=== PATIENT | female | born 1945 | race Caucasian/White ===

== ENCOUNTER 2019-03-12 06:44 | Inpatient (IN) | payer OTHER, MEDICAID ==
[~2019-03-12] VITALS: Ht 160 cm; Wt 88.9 kg
[~2019-03-12 06:44] MED LIST: ALD25 PO; AMLODIPINE BESYL5 M1 PO; BACO TOP; CHLORTHALIDONE25 MG PO; COUMADIN2 MG; CYMBALTA60 M1 PO; DIGOXIN0.125 M1 PO; HIBICLENS118 ML TOP; HUMALOG; LANTUS100 U/ML; LIPI20 PO; METFORMIN ER500 M1 PO; TOP50 PO; TRAMADOL HCL50 MG PO; XARELTO20 M1 PO; ZES10 PO
--- NOTE | 2019-03-12 06:53 | NUR ---
PT BIBA FOR LEFT HIP PAIN. PER BOOK SEWING MACHINE OPERATOR PT SLIPPED IN THE SHOWER TODAY. PT DENIES ALOC. FOUND PT ON FLOOR. PT WAS UNABLE TO STAND. NO S/S OF DISTRESS. RESP E/U. DR. OSBORN AT BEDSIDE FOR MSE. PULSES PRESENT BILATERALLY. COLOR AND TEMP WNL. WILL CONTINUE TO MONITOR.
[2019-03-12 07:51] LABS: BASOPHIL % 0.4 % (0-2); PLATELET COUNT 271 x10^3mcL (130-400)
[2019-03-12 07:53] LABS: CALCIUM 9.3 mg/dL (8.5-10.1); CARBON DIOXIDE 28.9 mmol/L (21-32); CHLORIDE SERUM 101 mmol/L (98-107); CREATININE SERUM 1.1 mg/dL (0.6-1.0); GLUCOSE SERUM 366 mg/dL (74-106); POTASSIUM SERUM 5.3 mmol/L (3.5-5.1); SODIUM SERUM 137 mmol/L (136-145)
[2019-03-12 07:58] LABS: ALKALINE PHOSPHATASE 119 U/L (46-116); ALT/SGPT 24 U/L (14-59); AST/SGOT 18 U/L (15-37); BILIRUBIN TOTAL 0.7 mg/dL (0.20-1.00); HDL CHOLESTEROL 37 mg/dL (40-60); LIPASE 105 IU/L (73-393); TOTAL PROTEIN, SERUM 6.9 g/dL (6.4-8.2); TRIGLYCERIDES 125 mg/dL (<150)
[2019-03-12 08:01] LABS: RED CELL DISTRIBUTION WIDTH 15.8 % (11.5-14.5)
[2019-03-12 08:03] LABS: CHOLESTEROL 123 mg/dL (<200); CHOLESTEROL/HDL RATIO 3.3
[2019-03-12 08:08] LABS: FREE T4 1.11 ng/dL (0.76-1.46); FREE THYROXINE INDEX 2.8 ug/dL (1.4-4.5); T4(THYROXINE) 8.2 ug/dL (4.7-13.3)
[2019-03-12 08:14] LABS: T3 TOTAL 1.37 ng/mL
--- NOTE | 2019-03-12 08:52 | NUR ---
JIMMY; PT CONTRACTS SPECIALIST FROM [facility] CALLED FOR A CLINICAL UPDATE ON PATIENT; ALL QUESTIONS ADDRESSED AT THIS TIME; SHE HAD NO FURTHER QUESTIONS.
--- NOTE | 2019-03-12 11:00 | NUR ---
PT RECEIVED FROM ED AWAKE, ALERT AND ORIENTED. IN NO RESP. DISTRESS. PT CAME IN S/P FALL IN SHOWER WITH LT HIP PAIN. LEG SHORTENING NOTED. PT WAS MEDICATED IN ER FOR PAIN WITH FAIR RELIEF. NO C/O PAIN AT THIS TIME. VS STABLE. IVF INFUSING TO RT AC AND SITE/CATH INTACT.PT ORIENTED TO ROOM, CALL LIGHT WITHIN REACH. FAMILY AT BEDSIDE. WILL CONTINUE WITH PLAN OF CARE.
[2019-03-12 11:12] VITALS: BP 132/90
--- NOTE | 2019-03-12 12:44 | NUR ---
C/O PAIN TO LT HIP 05/22, MEDICATED WITH MORPHINE IVP PER ORDER.
--- NOTE | 2019-03-12 14:07 | NUR ---
RESTING AT THIS TIME. NO S/S OF PAIN OR DISCOMFORT. CALL LIGHT WITHIN REACH,.
--- NOTE | 2019-03-12 16:04 | NUR ---
JEWELL CATH INSERTED PER ORDER. IN PLACE AND DRAINING WELL. PT C/O LT HIP AFTER MOVEMENTS, NORCO GIVEN.
[2019-03-12 16:20] VITALS: BP 130/77
--- NOTE | 2019-03-12 16:50 | NUR ---
RESTING AT THIS TIME. REPORTED FAIR PAIN RELIEF.
[2019-03-12 17:26] LABS: microscopic required? YES; urine erythrocyte NEGATIVE (NEGATIVE)
--- NOTE | 2019-03-12 18:42 | NUR ---
REMAINS IN NO DISTRESS, AWAKE AND ALERT. NO CHANGES IN VS. IVF INFUSING WELL AND SITE CLEAR. CALL LIGHT WITHIN REACH. WILL BE ENDORSED TO INCOMING SHIFT.
--- NOTE | 2019-03-12 19:30 | NUR ---
RECIEVED PT IN NO ACUTE DISTRESS. TELE #21, A FIB, HR 115. BREATHING E/U. RADIAL AND PEDAL PULSES PALPABLE. JEWELL PRESENT. C/O L HIP PAIN, WILL MEDICATE PER EMAR. IV TO LAC, PATENT. BED IN LOWEST POSITION, 2 SIDE RAILS UP, CALL LIGHT IN REACH. INSTRUCTED TO CALL FOR ASSISTANCE.
[2019-03-12 20:11] VITALS: BP 136/76
--- NOTE | 2019-03-13 00:11 | NUR ---
ENDORSED CARE TO JANET MCLEOD.
--- NOTE | 2019-03-13 00:45 | NUR ---
PATIENT RECEIVED FROM LUIS MCLEOD FOR CONTINUATION CARE. RESPIRATION EVEN AND UNLABORED, ON ROOM AIR. COMPLAINED OF LEFT HIP PAIN, PS 10/10. WILL MEDICATE ORDERED. FACIAL GRIMACE NOTED. IV SITE TO RIGHT ANTECUBITAL AREA INTACT. WILL CONTINUE TO MONITOR.
--- NOTE | 2019-03-13 01:17 | NUR ---
PATIENT COMPLAINED OF LEFT HIP PAIN, PS 10/10. MEDICATED WITH MORPHINE SULFATE 2 MG IVP ORDERED. WILL CONTINUE TO MONITOR.
[2019-03-13 05:33] VITALS: BP 133/76
--- NOTE | 2019-03-13 06:22 | NUR ---
PATIENT RESTING IN BED. RESPIRATION EVEN AND UNLABORED, ON ROOM AIR. COMPLAINED OF LEFT HIP PAIN, PS 10/10. MEDICATED WITH MORPHINE SULFATE 2 MG IVP ORDERED. JEWELL CATHETER TO GRAVITY. ON NPO FOR POSSIBLE SURGERY. ASSISTED WITH NEEDS. SAFETY OBSERVED. PLACED BED IN THE LOWEST POSITION. PLACED CALL LIGHT WITHIN REACH AT ALL TIMES.
[2019-03-13 06:49] LABS: BASOPHIL % 0.3 % (0-2); PLATELET COUNT 254 x10^3mcL (130-400)
[2019-03-13 06:55] LABS: CALCIUM 9.5 mg/dL (8.5-10.1); CARBON DIOXIDE 28.4 mmol/L (21-32); CHLORIDE SERUM 103 mmol/L (98-107); GLUCOSE SERUM 284 mg/dL (74-106); POTASSIUM SERUM 4.8 mmol/L (3.5-5.1); SODIUM SERUM 139 mmol/L (136-145)
[2019-03-13 07:12] LABS: RED CELL DISTRIBUTION WIDTH 16.5 % (11.5-14.5)
[2019-03-13 08:50] VITALS: BP 164/90
[2019-03-13 13:09] VITALS: BP 131/80
--- NOTE | 2019-03-13 13:25 | NUR ---
INTERROGATED DEFIBRILLATOR THROUGH [employer] DEVICE. REPORT RECEIVED VIA FAX. DR. COSTELLO AND NP. SKAGGS MADE AWARE.
--- NOTE | 2019-03-13 14:38 | NUR ---
PHYSICAL THERAPY NOTE PHYSICAL THERAPY EVAL ON HOLD. PATIENT IS AWAITING ORTHO PROCEDURE FOR L HIP FRACTURE
[2019-03-13 15:03] VITALS: Ht 160 cm; Wt 88.9 kg
[2019-03-13 16:30] VITALS: BP 131/81
--- NOTE | 2019-03-13 19:26 | NUR ---
REPORT GIVEN TO THE CUSTOMER CARE SPECIALIST NURSE, PT AWAKE AND ALERT FOR REPORT. TOLERATED TREATMENT WELL DURING THE SHIFT CARE ENDORSED
--- NOTE | 2019-03-13 19:30 | NUR ---
RECIEVED PT IN NO ACUTE DISTRESS. TELE #21, A FIB, HR 90'S. BREATHING E/U. JEWELL PRESENT. L PEDAL PULSE PALPABLE. CMS INTACT. STATES L HIP PAIN CURRENTLY 0/10. IV TO LAC, PATENT. NPO AFTER 0000 FOR POSSIBLE PROCEDURE TOMORROW. CONTACT PRECAUTIONS IN PLACE. BED IN LOWEST POSITION, 2 SIDE RAILS UP, CALL LIGHT IN REACH. INSTRUCTED TO CALL FOR ASSISTANCE.
[2019-03-13 20:57] VITALS: BP 126/74
--- NOTE | 2019-03-14 00:35 | NUR ---
RESTING IN BED WITH EYES CLOSED. BREATHING E/U. NO ACUTE DISTRESS NOTED. WILL CONTINUE TO MONITOR.
[2019-03-14 05:47] VITALS: BP 133/71
[2019-03-14 06:15] LABS: BASOPHIL % 0.3 % (0-2); PLATELET COUNT 243 x10^3mcL (130-400)
--- NOTE | 2019-03-14 06:35 | NUR ---
CONSENT FOR SURGERY AND ANESTHESIA OBTAINED AND CHECKLIST IN CHART. JEWELL CARE COMPLETE. PRE-OP CHLORHEXADINE BATH COMPLETE. NPO SINCE MIDNIGHT. NO ACUTE DISTRESS NOTED. WILL ENDORSE TO ONCOMING RN.
[2019-03-14 06:53] LABS: CALCIUM 8.4 mg/dL (8.5-10.1); CARBON DIOXIDE 30.5 mmol/L (21-32); CHLORIDE SERUM 102 mmol/L (98-107); CREATININE SERUM 0.9 mg/dL (0.6-1.0); GLUCOSE SERUM 263 mg/dL (74-106); POTASSIUM SERUM 4.6 mmol/L (3.5-5.1); SODIUM SERUM 139 mmol/L (136-145)
[2019-03-14 06:59] LABS: RED CELL DISTRIBUTION WIDTH 16.1 % (11.5-14.5)
--- NOTE | 2019-03-14 07:32 | NUR ---
RECEIVED PATIENT FROM NIGHT NURSE. AWAKE. ALERT AND ORIENTED. NO C/O PAIN AT THIS TIME. NPO FOR SURGERY THIS MORNING. IV INFUSING NS AT 50 ML/HR. JEWELL CATHETER DRAINING CARLOS URINE.
[2019-03-14 08:43] VITALS: BP 140/75
--- NOTE | 2019-03-14 08:56 | NUR ---
PATIENT C/O MODERATELY SEVERE PAIN IN L HIP/LEG. MEDICATED WITH MORPNINE PER EMAR. GIVEN BETABLOCKER BUT ALL OTHER SCHEDULED MEDS HELD.
--- NOTE | 2019-03-14 09:11 | NUR ---
PATIENT TAKEN TO SURGERY.
--- NOTE | 2019-03-14 13:39 | NUR ---
AT 1202 - PAITENT BACK IN ROOM FOLLOWING L HIP ORIF WITH TRACNAL UNDER GENERAL AND LOCAL ANAESTHESIA. PATIENT IS AWAKE, ALERT AND ORIENTED X 4. DRESSING TO L HIP IS DRY AND INTACT. IV NOW IN LAC - IV INFUSION OF NS RESUMED AT 50 ML/HR. REPROTS MINIMAL PAIN. CALL LIGHT WITHIN REACH.
[2019-03-14 14:00] VITALS: BP 124/72
--- NOTE | 2019-03-14 14:33 | NUR ---
PHYSICAL THERAPY NOTE PHYSICAL THERAPY EVALUATION SERVICE DATE SCHEDULED FOR 03/15/[address] BRODY.
--- NOTE | 2019-03-14 15:22 | NUR ---
AT 1415 - REPOSITIONED FOR CONMFORT. C/O L HIP/LEG PAIN. IV ANCEF NOW IN PROGRESS. SCDS TO BLE IN PLACE. AT 1439 - MEDICATED WITH MORPHINE PER EMAR. AT 1515 - APPEARS MORE COMFORTABLE. RESTING QITH EYES CLOSED; RESPIRATIONS REGULAR. CONTINUING TO MONITOR.
--- NOTE | 2019-03-14 16:25 | NUR ---
STATUS CHANGED TO MED-SURG. PATIENT TAKEN OFF CARDIAC MONITORING. AT BEDSIDE.
[2019-03-14 17:34] VITALS: BP 128/75
--- NOTE | 2019-03-14 18:05 | NUR ---
SAT UP IN BED FOR DINNER. WAS ABLE TO EAT SMALL AMOUNT. NOW RESTING QUIETLY. VSS. AFEBRILE. IV INFUSING NS AT 50 ML/HR. DRESSING TO LEFT HIP DRY AND INTACT. PAIN UNDER CONTROL WITH IV MORPHINE. JEWELL CATHETER DRAINING CARLOS URINE. GOOD OUTPUT. CONTACT ISOLATION FOR MRSA NARES, MAINTAINED. WILL ENDORSE CARE TO NIGHT NURSE.
--- NOTE | 2019-03-14 19:04 | NUR ---
PATIENT ATTEMPTED TO GET OUT OF BED WITHOUT CALLING FOR NURSE. APPEARES SLIGHTLY DISORIENTED. PATIENT REORIENTED. INSTRUCTED TO CALL FOR NURSE AND NOT TO ATTEMPT GETTING OUT OF BED - PT WILL ASSIST PATIENT IN AM. REPOSITIONED. MEDICATED WITH IV MORPHINE PER EMAR FOR PAIN. BED EXIT ALARM ACTIVE.
--- NOTE | 2019-03-14 20:14 | NUR ---
RECIEVED PT FROM DAY NURSE. PT RESTING IN BED COMFORTABLY. PT A/OX3, FORGETFUL OF WHAT HOSPITAL SHE IS CURRENTLY IN. PT DENIES PAIN AT THIS TIME. M/S, DENIES CP, N/V, DIZZINESS, OR PALPATION. PALPABLE PUSLES, NO EDEMA NOTED. BREATHING EVEN AND UNLABORED ON RA. DENIES SOB. IS AT BEDSIDE, PT DEMONSTRATED UNDERSTANDING. ABD SOFT AND ROUND, PT PASSING GAS AND BURPING. L HIP SURGICAL INSCISION DRESSING CDI. LAC CDI AND INFUSING. BED AT LOWEST POSITION. CALL LIGHT WITHIN REACH. WILL CONTINUE TO MONITOR.
[2019-03-14 20:20] VITALS: BP 134/93
--- NOTE | 2019-03-14 21:30 | NUR ---
PT REFUSED BACTRIM OINTMENT IN LEXY NARES. STATES "I DONT WANT YOU IN MY NOSE." EDUCATED PT ON NEED AND USE OF BACTRIM. PT CONTINUES TO REFUSE.
--- NOTE | 2019-03-15 00:20 | NUR ---
PT COMPLAINING OF 5/10 LLEG PAIN. MEDICATED PT WITH PRN NORCO. WILL MONITOR.
--- NOTE | 2019-03-15 00:23 | NUR ---
PT RESTING IN BED COMFORTABLY. AT BEDSIDE. BREATHING EVEN AND UNLABORED. NO SIGNS OF DISCOMFORT OR DISTRESS NOTED AT THIS TIME. BED AT LOWEST POSITION. CALL LIGHT WITHIN REACH. WILL CONTINUE TO MONITOR.
--- NOTE | 2019-03-15 04:24 | NUR ---
PT COMPLAINING OF 5/10 L HIP PAIN. MEDICATED PT WITH NORCO PRN. WILL MONITOR.
[2019-03-15 05:12] VITALS: BP 127/78
--- NOTE | 2019-03-15 06:12 | NUR ---
PT RESTING IN BED COMFORTABLY. NO S/S OF PAIN OR DISTRESS AT THIS TIME. PT BREATHING EVEN AND UNLABORED. L HIP SURGICAL DRESSING CDI. IV TO LAC CDI, INFUSING. ANCEF DOSE COMPLETED. BED AT LOWEST POSITION. CALL LIGHT WITHIN REACH. WILL CONTINUE TO MONITOR.
[2019-03-15 06:48] LABS: BASOPHIL % 0.2 % (0-2); PLATELET COUNT 233 x10^3mcL (130-400)
[2019-03-15 06:57] LABS: CARBON DIOXIDE 26.7 mmol/L (21-32); CHLORIDE SERUM 101 mmol/L (98-107); CREATININE SERUM 1.1 mg/dL (0.6-1.0); GLUCOSE SERUM 257 mg/dL (74-106); POTASSIUM SERUM 5.1 mmol/L (3.5-5.1); SODIUM SERUM 135 mmol/L (136-145)
[2019-03-15 07:03] LABS: RED CELL DISTRIBUTION WIDTH 16.7 % (11.5-14.5)
--- NOTE | 2019-03-15 08:00 | NUR ---
AT 0730 - RECEIVED PATIENT FROM NIGHT NURSE. AWAKE, ALERT AND CONFUSED. ORIENTED TO PERSON AND SITUATION, NOT TO PLACE AND TIME. KNOWS THAT SHE HAS HAD HIP SURGERY FOR FRACTURE AFTER A FALL. PATIENT INSTRUCTED NOT TO ATTEMPT GETTING OUT OF BED BUT TO CALL FOR NURSE WITH ANY NEEDS. PHYSICAL THERAPY WILL AMBULATE PATIENT TODAY. SAT UP IN BED FOR BREAKFAST. IV INFUSING NS AT 50ML/HR. JEWELL CATHETER DRAINING CARLOS URINE. DRESSING TO L HIP IS DRY AND INTACT. SCDS TO BLE IN PLACE. BED EXIT ALARM ACTIVE.
[2019-03-15 09:23] VITALS: BP 105/59
--- NOTE | 2019-03-15 15:21 | NUR ---
AT 0845 - PATIENT OUT OF BED, AMBULATED WITH PHYSICAL THERAPY AFTER RECEIVING NORCO FOR PAIN. AT 1000 - SCHEDULED DOSE OF LANTUS 45 UNITS HELD AT THIS TIME DUE TO PATIENT NOT EATING. WAITER/WAITRESS CAPTAIN KATHERINE WAS NOTIFIED. AT 1045 - AT BEDSIDE. PATIENT APPEARS MORE ORIENTED. AT 1207 - BLOOD GLUCOSE LEVEL 257. GIVEN REGULAR INSULIN PER SLIDING SCALE. AT 1440 - MEDICATED WITH NORCO FOR PAIN. PHYSICAL THERAPY SEEING PATIENT AGAIN THIS PM.
[2019-03-15 16:46] VITALS: BP 113/59
--- NOTE | 2019-03-15 18:13 | NUR ---
PATIENT AWAKE, ALERT AND ORIENTED WITH PERIODS OF CONFUSION. ORIENTED TO PERSON AND SITUATION BUT FORGETS THAT SHE IS IN HOSPITAL. REQUIRES FREQUENT RE-ORIENTATION. VSS AND WNL. AFEBRILE. DRESSING REMAINS DRY. PATIENT HAS C/O INTERMITTENT NAUSEA AND RECEIVED ZOFRAN WITH GOOD EFFECT. TAKING ONLY SMALL AMOUNTS OF PO FOOD AND FLUIDS. IV INFUSING NS AT 50 ML/HR. JEWELL CATHETER DRAINING CARLOS URINE. 800 ML OUTPUT THIS SHIFT. PAIN UNDER CONTROL WITH NORCO. PATIENT ABLE TO REPOSITION SELF USING TRAPEZE. AT BEDSIDE. WILL ENDORSE CARE TO NIGHT NURSE.
--- NOTE | 2019-03-15 19:34 | NUR ---
PT RECEIVED FROM THE DAY SHIFT RN. PT IS ALERT AND ORIENTED X3 AT THIS TIME. PT IS CALM AND PLEASANT WITH CARE, TRAPEZE IN PLACE, AIR MATTRESS IN PLACE. SCDS IN PLACE, LEFT HIP BANDAGES IN PLACE AND IS CDI, PT STATES PAIN IN THE LEFT HIP THAT IS ACHING AND DULL AND STATES IT IS A 2/10 PAIN BUT REFUSED PAIN MEDS BECAUSE PAIN IS TOLERABLE. SAFETY AND COMFORT MEASURES MAINTAINED, BED IN LOWEST POSITION, CALL LIGHT WITHIN REACH. WILL CONTINUE TO MONITOR AT THIS TIME.
[2019-03-15 20:15] VITALS: BP 92/56
--- NOTE | 2019-03-16 01:28 | NUR ---
PT IS RESTING IN BED WITH EYES CLOSED AT THIS TIME. PT HAS BEEN ALERT AND ORIENTED X3, CALM AND COOPERATIVE WITH CARE. TRAPEZE IN PLACE AND AIR MATTRESS IN PLACE. PT USES TRAPEZE TO ASSIST WITH REPOSITIONING, NO S/S OF PAIN NOTED. SAFETY AND COMFORT MEASURES MAINTAINED, BED IN LOWEST POSITION, CALL LIGHT WITHIN REACH.
--- NOTE | 2019-03-16 05:29 | NUR ---
PT HAS RESTED IN INTERMITTENT INTERVALS THROUGHOUT THE SHIFT. PT HAS BEEN CALM AND PLEASANT AT THIS TIME. ALERT AND ORIENTED X3 WITH EPISODES OF CONFUSION AT TIMES. PT COMPLAINING OF LEFT HIP PAIN, PT STATES PAIN IS 7/10 AND IS SHARP PAIN AND INCREASES TO 10/10 WITH MOVEMENT. PT MEDICATED WITH PRN NORCO, IV INFUSING AND INTACT AT THIS TIME. DRESSINGS ARE CDI ON THE LEFT HIP, SAFETY AND COMFORT MEASURES MAINTAINED, BED IN LOWEST POSITION, CALL LIGHT WITHIN REACH. PT IS ON AIR MATRESS AND USES TRAPEZE TO ASSIST WITH TURNINIG AND REPOSITIONING. WILL ENDORSE CONTINUITY OF CARE TO THE ONCOMING RN.
[2019-03-16 05:40] LABS: BASOPHIL % 0.1 % (0-2); PLATELET COUNT 245 x10^3mcL (130-400)
[2019-03-16 05:41] LABS: CALCIUM 8.6 mg/dL (8.5-10.1); CARBON DIOXIDE 26.9 mmol/L (21-32); CHLORIDE SERUM 103 mmol/L (98-107); CREATININE SERUM 0.9 mg/dL (0.6-1.0); GLUCOSE SERUM 231 mg/dL (74-106); POTASSIUM SERUM 5.1 mmol/L (3.5-5.1); SODIUM SERUM 138 mmol/L (136-145)
[2019-03-16 05:42] LABS: RED CELL DISTRIBUTION WIDTH 16.9 % (11.5-14.5)
[2019-03-16 05:44] VITALS: BP 116/68
--- NOTE | 2019-03-16 07:50 | NUR ---
PATIENT A/OX3, ABLE TO MAKE NEEDS KNOWN AND FOLLOW COMMANDS. DENIES HEADACHE/CP. LUNGS CTA, NO RESP DISTRESS NOTED ON RA, BREATHING E/U, REACHING ABOUT 1500 ON INCENTIVE SPIROMETER, REINFORCED TO CONT USING THROUGHOUT DAY. PERIPHERAL PULSES PALAPBLE, NO EDEMA. DRESSINGS TO LT HIP SURGICAL SITE CDI, S/P ORIF 03/14/19. NO C/O PAIN AT REST BUT HAS PAIN UPON MOVMENET. TRAPEZE IN PLACE AND PATIENT UTILIZING. LOWER EXTREMETIES ELEVATED ON PILLOW. BOWEL SOUNDS ACTIVE, C/O CONSTIPATION, WILL INFORM PRACTITIONER. JEWELL IN PLACE DRAINING CARLOS URINE TO GRAVITY. IV ACCESS TO LAC SITE WNL, NO REDNESS/SWELLING. CALL LIGHT WITHIN REACH.
[2019-03-16 07:53] VITALS: BP 109/75
--- NOTE | 2019-03-16 09:08 | NUR ---
DUE MEDICATION GIVEN, NO DIFFICULT SWALLOWING OBSERVED. ROCK ROOM WORKER ERROL AT BEDSIDE, INFORMED PATIENT OF POSSIBLY TRANSFERRING PATIENT TO SNF FOR REHAB UPON DISCHARGE, PATIENT VERBALIZED UNDERSTANDING AND REQUESTING TO GO TO [facility]. ALSO INFORMED ROCK ROOM WORKER OF CONSTIPATION, PER ERROL SHE WILL MAKE AN ORDER.
--- NOTE | 2019-03-16 11:14 | NUR ---
CITRATE OF MAG GIVEN TO PATIENT FOR C/O CONSTIPATION. PATIENT BECAME NAUSEAS AFTER AND VOMITED X1, ZOFRAN GIVEN. DULCOLAX PO GIVEN FOR CONSTIPATION. PATIENT REPOSITIONED TO COMFORT. WILL CONT TO MONITOR.
--- NOTE | 2019-03-16 14:15 | NUR ---
PATIENT REPOSITIONED TO COMFORT, SITTING UP FOR LUNCH MEAL AND FOOD TRAY SET UP ASSISTANCE PROVIDED. ENCOURAGED PATIENT TO EAT, PATIENT STATES "IM PROBABLY NOT GOING TO EAT MUCH BUT I'LL TRY". PER MASSAGE THERAPY INSTRUCTOR PATIENT HAS MOMENTS OF CONFUSION. REORIENTING NEEDED.
--- NOTE | 2019-03-16 15:01 | NUR ---
VISITORS AT BEDSIDE. NO SIGN OF ACUTE DISTRESS AT THIS TIME.
--- NOTE | 2019-03-16 15:17 | NUR ---
PATIENT C/O SEVERE LEFT HIP PAIN AFTER BEING REPOSITIONED. NORCO GIVEN, WILL MONITOR.
--- NOTE | 2019-03-16 16:15 | NUR ---
PATIENT STATES NORCO EFFECTIVE FOR PAIN, NO C/O PAIN AT THIS TIME. WILL CONT TO MONITOR.
[2019-03-16 16:48] VITALS: BP 101/42
--- NOTE | 2019-03-16 18:15 | NUR ---
PATIENT ONLY ATE FRUIT SIDE FROM DINNER TRAY, STATES DOES NOT HAVE APPETITE. REPORTS PASSING GAS, NO BM YET, DENIES ABD DISCOMFORT AT THIS TIME. DENIES PAIN TO LT HIP AT REST AT THIS TIME. DRESSINGS TO LEFT HIP CDI. UTILIZING INCENTIVE SPIROMETER ADEQUATELY. NO RESP DISTRESS ON RA. IV SITE WNL. WILL CONT TO MONITOR AND ENDORSE TO NOC NURSE.
--- NOTE | 2019-03-16 19:30 | NUR ---
RECIEVED PT FROM DAY NURSE. PT RESTING COMFORTABLY ON BED. DENIES PAIN AT THIS TIME. PT AOX4, REORIENTED TO PLACE. BREATHING E/U ON RA. DENIES SOB. MED/SURG PT, DENIES CP, N/V, DIZZINESS, AND PALPATATIONS. PALPABLE PULSES, NO EDEMA NOTED. SCDS IN PLACE. ABD SOFT/ROUND. DENIES PAIN TO PALPATION. GENERALIZED WEAKNESS, UP WITH ASSIST. LEFT HIP SURGICAL INCISION COVERED WITH DRESSING, CDI. LAC INTACT AND INFUSING.
[2019-03-16 20:34] VITALS: BP 103/64
[2019-03-17 06:01] VITALS: BP 111/68
[2019-03-17 06:30] LABS: CALCIUM 8.1 mg/dL (8.5-10.1); CARBON DIOXIDE 29.5 mmol/L (21-32); CHLORIDE SERUM 103 mmol/L (98-107); CREATININE SERUM 0.8 mg/dL (0.6-1.0); GLUCOSE SERUM 186 mg/dL (74-106); SODIUM SERUM 137 mmol/L (136-145)
[2019-03-17 06:31] LABS: BASOPHIL % 0.4 % (0-2); PLATELET COUNT 240 x10^3mcL (130-400)
[2019-03-17 06:35] LABS: RED CELL DISTRIBUTION WIDTH 16.5 % (11.5-14.5)
--- NOTE | 2019-03-17 06:36 | NUR ---
PT RESTING IN BED COMFORTABLY. NO S/S OF PAIN OR DISTRESS AT THIS TIME. BREATHING E/U. NO SIGNS OF ACUTE DISTRESS AT THIS TIME. BED AT LOWEST POSITION. CALL LIGHT WITHIN REACH. WILL CONTINUE TO MONITOR.
[2019-03-17 06:46] LABS: POTASSIUM SERUM 5.6 mmol/L (3.5-5.1)
--- NOTE | 2019-03-17 07:30 | NUR ---
PT C/O PAIN TO LT HIP AREA MEDICATED WITH NORCO PO PER EMAR.
[2019-03-17 09:01] VITALS: BP 105/80
[2019-03-17] MEDS ORDERED: NORCO1 TA2 PO (09:28)
--- NOTE | 2019-03-17 11:00 | NUR ---
NOTED ORDER TO D/C JEWELL CATH. JEWELL CLAMPED AND INITIATED BLADDER TRAINING WITH PLAN FOR F/C D/C'D LATER TODAY.
[2019-03-17 13:06] VITALS: BP 112/65
--- NOTE | 2019-03-17 15:00 | NUR ---
PT C/O PAIN TO LLE 02/19, MEDICATED WITH TORADOL IVP PER EMAR. RELEASED JEWELL AT THIS TIME. FOR 10 MIN AND RECLAMPED
[2019-03-17 16:15] VITALS: BP 101/65
--- NOTE | 2019-03-17 16:50 | NUR ---
PT C/O PAIN NOT RELIEVED BY TORADOL. PO NORCO GIVEN AT THIS TIME PER EMAR.
--- NOTE | 2019-03-17 18:30 | NUR ---
PT RESTING COMFORTABLY AT THIS TIME. DENIES ANY DISCOMFORT. CALL LIGHT IN REACH NEEDS ATTENDED.
--- NOTE | 2019-03-17 19:40 | NUR ---
RECEIVED REPORT FROM AM NURSE. PT IN BED WITH FAMILY AT BEDSIDE. PT AAOX4, FOLLOWES COMMANDS. ABLE TO MAKE NEEDS KNOWN. MED-SURG. DENIES CP/PRESSURE AT THIS TIME. PALPABLE PULSES TO BLE AND BUE. NO EDEMA NOTED. LUNG SOUNDS CTA ON RA. BREATHING EVEN AND UNLABORED. NO ACUTE DISTRESS NOTED. ABD SOFT AND A LITTLE DISTENDED. ACTIVE BOWEL SOUNDS X4 QUAD. LAST BM 03/12/19. DENIES N/V/D. JEWELL CATH IN PLACE DRAINING CLEAR YELLOW URINE. GENRALIZED WEAKNESS. BEDFAST AT THIS TIME. DRESSING TO LEFT HIP CDI. DRESSING TO LEFT FOOT CDI. IV TO LAF PATENT AND INTACT. SITE FREE FROM REDNESS AND SWELLING. BED AT LOWEST SETTING. SIDE RAILS X2 UP. CALL LIGHT WITHING REACH. WILL CONTINUE TO MONITOR.
[2019-03-17 21:00] VITALS: BP 93/48
--- NOTE | 2019-03-17 21:30 | NUR ---
PAGE DR SOTO TO REQUEST ENEMA FOR PT. AWAITING TO CALL BACK.
--- NOTE | 2019-03-18 00:36 | NUR ---
PT C/O 02/19 PAIN AT HER INCISION. MEDICATED WITH PRN TORADOL PER OCT. PT REASSESSED AND STATES RELIEF OF PAIN. WILL CONTINUE TO MONITOR.
[2019-03-18 05:40] VITALS: BP 116/79
--- NOTE | 2019-03-18 06:36 | NUR ---
PT SLEPT AT INTERVALS THROGHOUT THE NIGHT. BREATHING EVEN AND UNLABORED. NO ACUTE DISTRESS NOTED. PT REQUESTED TO KEEP JEWELL DURING THE NIGHT AND DC MORNING. STATES SHE IS INCONTINENT AND DOESNT WANT TO GET WET. JEWELL CATH DC AT [address] PARSONS CALL BACK TO PUT ENEMA ORDER IN. IV TO LFA RUNNING NS AT 50ML/HR. SITE FREE FROM REDNESS AND SWELLING. BED AT LOWEST SETTING. C/O OF 9/10 PAIN AT HER HIP. MEDICATED WITH PRN NORCO PER OCT. SIDE RAILS X2 UP. CALL LIGHT WITHING REACH. WILL ENDORSE CARE TO AM NURSE. WILL ENDORSE CARE TO AM NURSE.
--- NOTE | 2019-03-18 07:50 | NUR ---
RECEIVED PT IN BED A/A/OX3 FORGETFUL AND DISORIENTED AT TIMES. RESP EVEN AND UNLABORED WITH CLEAR BS BILAT. DENIES ANY SOB/CP/PRESSURE. NO EDEMA NOTED WITH IVF TO LFA. ABD SOFT, OBESE, NONTENDER WITH +BS X4. MUSIC INSTRUCTOR BM IN 5DAYS RECEIVED LAXITIVES LAST 2 DAYS. WILL REQUEST ENEMA FROM THIS AM. PT DENIES URGE TO HAVE BM AT THIS TIME. F/C D/C EARLIER IN AM NOTICE SMALL AMOUNT OF URINE ON JULIAN. [PT INSTRUCTED TO CALL WHEN A BEDPAN WAS NEEDED. PT ABLE TO REPOSITION SELF IN BED WITH SOME ASSISTANCE, GET OOB WITH WALKER AND PT TO BEDSIDE CHAIR. DENIES ANY PAIN AT THIS TIME. CALL LIGHT IN REACH NEEDS ATTENDED TO.
[2019-03-18 08:17] VITALS: BP 103/76
--- NOTE | 2019-03-18 08:20 | NUR ---
SPOKE WITH MACEY FRANKLIN MADE AWARE PT HAS HAD NO BM RECORDER SINCE ADMISSION PT RECEIVED SEVERAL LAXITIVES ON SUNDAY AND YESTERDAY WITH NO EFFECT, REQUESTED ENEMA. MADE AWARE SHE WILL ORDER ENEMA FOR PT TODAY.
[2019-03-18 08:49] LABS: BASOPHIL % 0.5 % (0-2); PLATELET COUNT 298 x10^3mcL (130-400)
[2019-03-18 09:00] LABS: CALCIUM 8.5 mg/dL (8.5-10.1); CARBON DIOXIDE 26.7 mmol/L (21-32); CHLORIDE SERUM 101 mmol/L (98-107); GLUCOSE SERUM 245 mg/dL (74-106); POTASSIUM SERUM 4.3 mmol/L (3.5-5.1); SODIUM SERUM 135 mmol/L (136-145)
--- NOTE | 2019-03-18 11:00 | NUR ---
SPOKE WITH PAEDIATRIC THORACIC PHYSICIAN REGARDING ORDER TO CHANGE DRSG TO LT SX SITE. PER PAEDIATRIC THORACIC PHYSICIAN OK TO CHANGE WILL PLACE ORDER IN CHART.
[2019-03-18 11:50] VITALS: BP 112/69
--- NOTE | 2019-03-18 12:16 | NUR ---
RECEIVED CALL FROM CM WITH BED AVAILABLE FOR TRANSFER TO [facility], WITH TRANSPORT ON WILL CALL WITH [facility]. MADE AWARE THAT PT WILL ALLOW FOR ENEMA TO BE GIVEN AFTER LUNCH THEN IF SHE HAS BM WILL BE CLEARED FOR D/C.
--- NOTE | 2019-03-18 14:55 | NUR ---
ENEMA GIVEN WITH MOD STOOL X1 AT THIS TIME.
--- NOTE | 2019-03-18 16:02 | NUR ---
[facility] GIVEN TO TANA JONES. MADE AWARE PT WILL BE RFID SPECIALIST AT 1800 AFTER DINNER. RECOMENDED PT GET EVENING SNACK D/T PT HAVING POOR APPETITE,A ND RECEIVED LANTUS THIS AM. DAUGHTER GABRIEL CALLED AND MADE AWARE.
[2019-03-18 16:30] VITALS: BP 103/59
--- NOTE | 2019-03-18 16:30 | NUR ---
PHYSICAL THERAPY DAILY NOTES CO-SIGN All documentation done by the Chicken Buyer for 03/18/19 has been reviewed. I agree with the documentation. Reviewed/Co-Signed by: Lorena Llanos PT Documentation Done by:CESAR NAVA PTA
--- NOTE | 2019-03-18 18:31 | NUR ---
REPORT GIVEN TO [facility] TRANSPORT PT TO BE TAKEN TO [facility]. NOTE SENT TO FACILITY WITH PT'S LATEST VITALS AND BS. PT LEFT FACILITY VIA GUERNEY WITH ALL PERSONAL BELONGINGS, FREE OF ANY APPARENT DISTRESS.
== END 2019-03-18 18:44 | disposition short-term general hospital (02) | DRG 480 ==
LOC: ED 06:44 → MU 09:33 → DU 09:33 → MU 03-14 16:16
PROVIDERS: Internal Medicine; Neuromusculoskeletal Medicine, Sports Medicine; Specialist; ADMIT Internal Medicine
PROC: 0QS704Z Reposition Left Upper Femur with Internal Fixation Device, Open Approach (ICD-10-PCS; principal; 2019-03-14 09:30)
DX: S72.142A Displaced intertrochanteric fracture of left femur, initial encounter for closed fracture (principal); E13.00 Other specified diabetes mellitus with hyperosmolarity without nonketotic hyperglycemic-hyperosmolar coma (NKHHC); N39.0 Urinary tract infection, site not specified; I42.9 Cardiomyopathy, unspecified; I50.22 Chronic systolic (congestive) heart failure; I48.2 Chronic atrial fibrillation; F32.9 Major depressive disorder, single episode, unspecified; E78.5 Hyperlipidemia, unspecified; I11.0 Hypertensive heart disease with heart failure; E66.9 Obesity, unspecified; I25.10 Atherosclerotic heart disease of native coronary artery without angina pectoris; Z96.641 Presence of right artificial hip joint; Z96.651 Presence of right artificial knee joint; Z79.84 Long term (current) use of oral hypoglycemic drugs; W18.2XXA Fall in (into) shower or empty bathtub, initial encounter; Y93.89 Activity, other specified; Y92.012 Bathroom of single-family (private) house as the place of occurrence of the external cause; Z95.810 Presence of automatic (implantable) cardiac defibrillator; Z68.34 Body mass index [BMI] 34.0-34.9, adult; Z86.73 Personal history of transient ischemic attack (TIA), and cerebral infarction without residual deficits; Z79.4 Long term (current) use of insulin
CPT/HCPCS: 76001; 82962; 83880; 84439; 94150; 97110-GP; 97116-GP; 97530-GP; C1713; G0378; J0690; J0696; J1644; J1885; J2270; J2405; J2704; J3010; J3490; J7030

== ENCOUNTER 2020-05-04 20:22 | Emergency (ER) | payer OTHER, MEDICAID ==
[~2020-05-04] VITALS: Ht 160 cm; Wt 104.3 kg
[~2020-05-04 20:22] MED LIST changes: +NORCO1 TA2 PO
[2020-05-04 20:39] VITALS: Ht 160 cm; Wt 104.3 kg
[2020-05-04 23:38] VITALS: BP 129/75
== END 2020-05-04 23:38 | disposition home or self-care (01) ==
LOC: ED 20:22
DX: S72.142A Displaced intertrochanteric fracture of left femur, initial encounter for closed fracture (principal); I10 Essential (primary) hypertension; E11.9 Type 2 diabetes mellitus without complications; I48.91 Unspecified atrial fibrillation; Z98.890 Other specified postprocedural states; X58.XXXA Exposure to other specified factors, initial encounter; Y93.89 Activity, other specified; Y92.89 Other specified places as the place of occurrence of the external cause; Y99.8 Other external cause status
CPT/HCPCS: J2270; J2405; Q0092